=== PATIENT | female | born 1965 | race Caucasian/White ===

== ENCOUNTER 2018-09-10 10:57 | Inpatient (IN) | payer OTHER ==
[~2018-09-10] VITALS: Ht 160 cm; Wt 60.3 kg
[2018-09-10] MEDS ORDERED: NORVASC2.5 M1 (11:12)
--- NOTE | 2018-09-10 11:12 | NUR ---
PTE REFIERE DOLOR ABDOMINAL DESDE ANOCHE,PTE REFIERE QUE TIENE PREVISTO OPERACION LA SEMANA QUE VIENE DE DIVERTICULOS LA OPERA DR TOUS.
--- NOTE | 2018-09-10 12:27 | NUR ---
SE RECIBE PACIENTE ALERTA Y ORIENTADA EVALUADA POR EL DR. JOSEPH SE ORIENTA A PACIENTE SOBRE TRATAMIENTO MEDICO SE EXTRAEN MUESTRAS DE ASPEN Y SE ADMISNITRAN MEDICAMENTOS DUARTE ORDEN MEDICA BAJO MEDIDAS ASEPTICAS. SE LE ANGELINA CONTRRASTE Y SE ORIENTA SOBRE CT ABDOMINO PELVICO
[2018-09-13] MEDS ORDERED: CIPRO500 MG PO (17:41)
[2018-09-13] MEDS ORDERED: FLAGYL375 MG PO (17:42)
== END 2018-09-13 19:49 | disposition home or self-care (01) | DRG 391 ==
LOC: ER 10:57 → MEDJ 18:25
PROVIDERS: ADMIT Student in an Organized Health Care Education/Training Program
PROC: BW21ZZZ Computerized Tomography (CT Scan) of Abdomen and Pelvis (ICD-10-PCS; principal; 2018-09-11)
DX: K57.32 Diverticulitis of large intestine without perforation or abscess without bleeding (principal); A41.9 Sepsis, unspecified organism; I10 Essential (primary) hypertension; R50.9 Fever, unspecified

== ENCOUNTER 2018-09-13 12:15 | Inpatient (IN) | payer OTHER ==
[~2018-09-13] VITALS: Ht 160 cm; Wt 60.3 kg
[~2018-09-13 12:15] MED LIST: NORVASC2.5 M1
[2018-09-13] MEDS ORDERED: CIPRO500 MG PO (17:41)
[2018-09-13] MEDS ORDERED: FLAGYL375 MG PO (17:42)
== END 2018-09-22 15:35 | disposition home or self-care (01) | DRG 331 ==
LOC: EDUNIT# 12:15 → O/R 09-19 06:30 → SURH 09-19 06:30
PROVIDERS: ADMIT Colon & Rectal Surgery
PROC: 0UB14ZZ Excision of Left Ovary, Percutaneous Endoscopic Approach (ICD-10-PCS; 2018-09-19)
PROC: 0DJD8ZZ Inspection of Lower Intestinal Tract, Via Natural or Artificial Opening Endoscopic (ICD-10-PCS; 2018-09-19)
PROC: 0DTN4ZZ Resection of Sigmoid Colon, Percutaneous Endoscopic Approach (ICD-10-PCS; principal; 2018-09-19 12:15)
DX: K57.32 Diverticulitis of large intestine without perforation or abscess without bleeding (principal); N83.292 Other ovarian cyst, left side; K66.0 Peritoneal adhesions (postprocedural) (postinfection); I10 Essential (primary) hypertension

== ENCOUNTER 2019-09-28 06:42 | Day surgery (SDC) | payer OTHER ==
[~2019-09-28 06:42] MED LIST changes: +CIPRO500 MG PO; +FLAGYL375 MG PO
== END 2019-09-28 12:35 | disposition home or self-care (01) ==
LOC: AMB-ENDOS 06:42 → ADM 13:15
DX: K63.5 Polyp of colon (principal); K57.32 Diverticulitis of large intestine without perforation or abscess without bleeding; K64.1 Second degree hemorrhoids